=== PATIENT | male | born 1940 | race Caucasian/White ===

== ENCOUNTER → 2018-10-03 11:55 | Day surgery (SDC) | payer MEDICARE, OTHER ==
[~2018-10-03 11:55] MED LIST: Acetaminophen TAB* 325 MG PO PRN; Buffered Lidocaine 1% SYRIN* 1 ML/SYRINGE INTRADERM ONE; DiMENhydriNATE IV* 50 MG/ML VIAL IV PUSH PRN; Lactated Ringers 1000 ML Bag* 1,000 ML IV SCH; Lidocaine 2% PF * 5 ML VIAL ONE; Midazolam* 1 MG/ML 2 ML VIAL (2 MG) ONE; Naloxone* 0.4 MG/ML 1 ML VIAL IV PRN; Ondansetron INJ* 2 MG/ML VIAL IV PRN; PROCHLORPERAZINE INJ 5 MG/ML 2 ML VIAL IV PRN; Propofol* 10 MG/ML 20 ML BTL ONE; Sodium Phosphate ADULT ENEMA* 118 ml bottle ONE; fentaNYL* 50 MCG/ML 2 ML VIAL (100 MCG VIAL) ONE; oxyCODONE TAB* 5 MG TAB ONE
[2018-10-03 15:22] VITALS: BP 145/78
--- NOTE | 2018-10-03 22:43 | PRO ---
CC: Kyle Vega MD * DATE OF PROCEDURE: 10/03/18 - [facility] REFERRING PROVIDER: Kyle Vega MD PROCEDURE: Flexible sigmoidoscopy. INDICATION: Mr. Fletcher is a 78-year-old gentleman with a history of prostate cancer status post radiation, chronic pain on narcotics, CAD status post CABG, aortic stenosis, and diabetes. The patient was seen in clinic recently with complaints of several months of bright red blood per rectum. He has not had a previous colonoscopy. A CBC was normal in July 2018. Recommendation was to proceed with colonoscopy to evaluate for possible source of bleeding. Today, Mr. Fletcher said that he only drank about half of the GoLYTELY prep as it tasted terrible. He had 1 to 2 formed bowel movements earlier today. No other response to the GoLYTELY noted. The patient reported that he did have some bright red blood earlier today with the bowel movement. Rectal exam in the pre-anesthesia unit did not demonstrate any large bleeding external hemorrhoids or blood. Discussion had with patient and his that I am unable to do the colonoscopy as it did not appear that he responded to the prep. I offered to do a flexible sigmoidoscopy to look at the distal rectum to see if there is any obvious source of bleeding that I can identify. The patient and his indicated that they would like to proceed with a flexible sigmoidoscopy. Patient was given a Fleet enema in the pre-anesthesia area without significant response. MEDICATIONS: Given by Anesthesia. DESCRIPTION OF PROCEDURE: Full disclosure of risks was reviewed with the patient as detailed on the consent form. The patient was placed in the left lateral decubitus position and monitored with continuous pulse oximetry, capnography, interval blood pressure monitoring, and direct observation. After anorectal exam was performed, the pediatric colonoscope was inserted into the rectum. Immediately upon entering the rectum, there were several pieces of large solid stool. I was unable to advance the scope past the solid stool. There were only limited views of the distal rectum not obscured by stool. There did appear to be multiple ectatic vessels suggestive of radiation proctitis. There was no active bleeding noted. Internal hemorrhoids also appreciated on withdrawal. Patient tolerated the procedure well and was recovered in the GI recovery area. IMPRESSION: 1. Flexible sigmoidoscopy to distal rectum. Very limited exam as there were multiple pieces of solid stool in the distal rectum. Scope was unable to be advanced into the rectum as a result of the incomplete prep. 2. In the area of distal rectal mucosa not obscured by stool, there appeared to be multiple ectatic vessels suggestive of chronic radiation proctitis. This finding is possible source of rectal bleeding, although I was unable to evaluate further to assess the extent and severity. I was also unable to rule- out other possible causes of rectal bleeding such as large polyp or mass. 3. Internal hemorrhoids. FOLLOW-UP: 1. Will schedule patient for follow-up in clinic. At that point, we can discuss possibility of attempting another colonoscopy (EXTENDED prep) with possible endoscopic treatment of radiation proctitis at that time. It would be very important that patient is prepped very well before using APC in the rectum. He seems disinclined to want to pursue a colonoscopy given the issues prepping. Another option would be to pursue empiric topical therapy for radiation proctitis with SCFA enemas, although these can be difficult to get covered by insurance. Thank you very much for this referral. [id number]/[facility] #: [id number] [place]
== END | disposition home or self-care (01) ==
LOC: OR 11:55
PROVIDERS: ATTEND Internal Medicine Gastroenterology
DX: K62.5 Hemorrhage of anus and rectum (principal); K62.7 Radiation proctitis; K64.8 Other hemorrhoids; Z85.46 Personal history of malignant neoplasm of prostate; I25.10 Atherosclerotic heart disease of native coronary artery without angina pectoris; Z95.1 Presence of aortocoronary bypass graft; Z79.01 Long term (current) use of anticoagulants; E11.9 Type 2 diabetes mellitus without complications; Z79.4 Long term (current) use of insulin; I08.0 Rheumatic disorders of both mitral and aortic valves; E03.9 Hypothyroidism, unspecified
CPT/HCPCS: A9270-GY; J2250; J2704; J3010